=== PATIENT | male | born 1970 | race African-American/Black ===

== ENCOUNTER 2019-01-24 18:00 | Outpatient (CLI) | payer BC | END 2019-01-24 18:01 | disposition home or self-care (01) | LOC: SLEEPLAB 18:00 | PROVIDERS: ATTEND Family Medicine | DX: G47.33 Obstructive sleep apnea (adult) (pediatric) (principal); E66.9 Obesity, unspecified; G31.84 Mild cognitive impairment of uncertain or unknown etiology; F41.9 Anxiety disorder, unspecified; I10 Essential (primary) hypertension; G47.00 Insomnia, unspecified; R53.83 Other fatigue; R09.89 Other specified symptoms and signs involving the circulatory and respiratory systems; R06.83 Snoring; Z68.44 Body mass index [BMI] 60.0-69.9, adult | CPT/HCPCS: 95806 ==

== ENCOUNTER 2024-08-12 10:59 | Outpatient (CLI) | payer BC | END 2024-08-12 11:00 | disposition home or self-care (01) | LOC: SCSRAD 10:59 | PROVIDERS: ATTEND Family Medicine | DX: J40 Bronchitis, not specified as acute or chronic (principal); J98.01 Acute bronchospasm | CPT/HCPCS: 71046 ==